=== PATIENT | female | born 1950 | race Two or more races ===

== ENCOUNTER 2017-07-04 05:35 | Day surgery (SDC) | payer OTHER ==
[~2017-07-04 05:35] MED LIST: ADVAIR HFA 115/12 GM IH; ANASTROZOLE1 MG PO; DIOVAN160 M1 PO; LEVO-T25 MCG PO; LIPITOR20 MG PO; METFORMIN HCL500 MG PO; OMEPRAZOLE20 M1 PO; SINGULAIR10 MG PO; TROMBONEX-D CA1 EACH PO; VERAPAMIL ER240 MG PO; [UNRECOGNIZED DRUG - OTHER]
== END 2017-07-04 13:30 | disposition home or self-care (01) ==
LOC: CIR.AMB 05:35
DX: N20.0 Calculus of kidney (principal)

== ENCOUNTER 2017-07-28 12:27 | Outpatient (CLI) | payer OTHER | END 2017-07-28 16:41 | disposition home or self-care (01) | LOC: SONOGRAMA 12:27 | DX: N60.11 Diffuse cystic mastopathy of right breast (principal); N60.12 Diffuse cystic mastopathy of left breast; N63.32 Unspecified lump in axillary tail of the left breast ==

== ENCOUNTER 2017-09-26 06:30 | Day surgery (SDC) | payer OTHER | END 2017-09-26 15:00 | disposition home or self-care (01) | LOC: CIR.AMB 06:30 | DX: D09.8 Carcinoma in situ of other specified sites (principal) ==

== ENCOUNTER 2017-10-10 11:46 | Outpatient (CLI) | payer OTHER | END 2017-10-10 11:54 | disposition home or self-care (01) | LOC: SONOGRAMA 11:46 → MAMO-SONO 11:46 | DX: N60.11 Diffuse cystic mastopathy of right breast (principal); N60.12 Diffuse cystic mastopathy of left breast ==

== ENCOUNTER 2017-10-10 14:39 | Outpatient (CLI) | payer OTHER | END 2017-10-10 14:46 | disposition home or self-care (01) | LOC: LAB 14:39 | DX: N61.0 Mastitis without abscess (principal) ==

== ENCOUNTER 2017-10-10 18:20 | Inpatient (IN) | payer OTHER ==
[~2017-10-10] VITALS: Ht 160 cm; Wt 84.4 kg
== END 2017-10-18 12:33 | disposition home or self-care (01) | DRG 920 ==
LOC: ER 18:20 → SURG 19:53
PROC: 0X950ZX Drainage of Left Axilla, Open Approach, Diagnostic (ICD-10-PCS; principal; 2017-10-13)
PROC: BH41ZZZ Ultrasonography of Left Breast (ICD-10-PCS; 2017-10-13)
PROC: BH41ZZZ Ultrasonography of Left Breast (ICD-10-PCS; 2017-10-15)
PROC: 0X950ZX Drainage of Left Axilla, Open Approach, Diagnostic (ICD-10-PCS; 2017-10-17)
DX: L76.34 Postprocedural seroma of skin and subcutaneous tissue following other procedure (principal); L03.112 Cellulitis of left axilla; Y83.8 Other surgical procedures as the cause of abnormal reaction of the patient, or of later complication, without mention of misadventure at the time of the procedure; Y92.098 Other place in other non-institutional residence as the place of occurrence of the external cause; I10 Essential (primary) hypertension; E11.9 Type 2 diabetes mellitus without complications; N61.0 Mastitis without abscess